=== PATIENT | female | born 1950 | race Caucasian/White ===

== ENCOUNTER 2016-11-10 19:40 | Emergency (ER) | payer MEDICARE, BC ==
[2016-11-10 21:57] LABS: ABSOLUTE BASOPHILS # (AUTO) 0.2 10^3/uL (0.0-0.2); ABSOLUTE LYMPHOCYTES (AUTO) 2.3 10^3/uL (0.5-4.7); ABSOLUTE MONOCYTES (AUTO) 0.7 10^3/uL (0.1-1.4); ABSOLUTE NEUT (AUTO) 11.6 10^3/uL (1.7-8.2); BASOPHILS % (AUTO) 1.2 % (0-2); EOSINOPHILS % (AUTO) 0.2 % (0-6); HEMATOCRIT 47.9 % (36.0-47.0); HEMOGLOBIN 15.4 g/dL (12.0-15.5); HGB HCT DIFFERENCE -1.7; LYMPHOCYTES % (AUTO) 15.3 % (13-45); MEAN CORPUSCULAR HEMOGLOBIN 29.6 pg (27.0-33.4); MEAN CORPUSCULAR HGB CONC 32.1 g/dL (32.0-36.0); MEAN CORPUSCULAR VOLUME 92 fl (80-97); MONOCYTES % (AUTO) 4.9 % (3-13); RED CELL DISTRIBUTION WIDTH 13.5 % (11.5-14.0); SEGMENTED NEUTROPHILS % (AUTO) 78.4 % (42-78); WHITE BLOOD COUNT 14.8 10^3/uL (4.0-10.5)
[2016-11-10 22:11] LABS: ALANINE AMINOTRANSFERASE 38 U/L (9-52); ALBUMIN 4.5 g/dL (3.5-5.0); ALKALINE PHOSPHATASE 81 U/L (38-126); ANION GAP 12 (5-19); ASPARTATE AMINO TRANSFERASE 23 U/L (14-36); BILIRUBIN,DIRECT 0.4 mg/dL (0.0-0.4); BLOOD UREA NITROGEN 33 mg/dL (7-20); CALCIUM 10.2 mg/dL (8.4-10.2); CARBON DIOXIDE 25 mmol/L (22-30); CHLORIDE 106 mmol/L (98-107); CREATININE RESULT 0.76 mg/dL (0.52-1.25); GLUCOSE 136 mg/dL (75-110); POTASSIUM 4.6 mmol/L (3.6-5.0); SODIUM 143.2 mmol/L (137-145); TOTAL PROTEIN 7.8 g/dL (6.3-8.2)
--- NOTE | 2016-11-10 22:55 | ER Document Report ---
ED General - General Chief Complaint: Abnormal Lab Results Stated Complaint: BLOOD WORK Time Seen by Provider: 11/10/16 21:53 Mode of Arrival: Ambulatory Information source: Patient Notes: This is a 66-year-old female who is visiting family from [place]. She presents for evaluation of blood work. She states that she saw her primary care doctor in [place] for 5 days ago because she was not feeling well. She was diagnosed with an ear infection on that day. She did have some blood work done on that day as well. Today she received a phone call about that blood work stating that her potassium was elevated at 8.9. She was told that the blood was not hemolyzed. It was recommended that she present to the nearest emergency department. Patient states that she feels well today. She states that her symptoms from her ear infection have resolved. She has had no chest pain or shortness of breath. She denies any pain. She has been eating normally. She has no complaints at this time. - Related Data Allergies/Adverse Reactions: Penicillins Allergy (Verified 11/10/16 20:09) Past Medical History - General Information source: Patient - Social History Smoking Status: Former Smoker Frequency of alcohol use: Rare Drug Abuse: None Lives with: Family Family History: Reviewed & Not Pertinent - Past Medical History Cardiac Medical History: Reports: Hx Hypercholesterolemia, Hx Hypertension Renal/ Medical History: Denies: Hx Peritoneal Dialysis Malignancy Medical History: Reports: Hx Breast Cancer Past Surgical History: Reports: Hx Hysterectomy, Hx Thyroid Surgery Review of Systems - Review of Systems Constitutional: No symptoms reported, See HPI EENT: No symptoms reported Cardiovascular: No symptoms reported. denies: Chest pain, Palpitations Respiratory: No symptoms reported Gastrointestinal: No symptoms reported. denies: Abdominal pain, Nausea, Vomiting Genitourinary: No symptoms reported Musculoskeletal: No symptoms reported Skin: No symptoms reported Hematologic/Lymphatic: No symptoms reported Neurological/Psychological: No symptoms reported Physical Exam - Notes Notes: PHYSICAL EXAMINATION: GENERAL: Well-appearing, well-nourished and in no acute distress. Very pleasant and conversant HEAD: Atraumatic, normocephalic. EYES: Pupils equal round and reactive to light, extraocular movements intact, sclera anicteric, conjunctiva are normal. ENT: nares patent, oropharynx clear without exudates. Moist mucous membranes. NECK: Normal range of motion, supple without lymphadenopathy LUNGS: Breath sounds clear to auscultation bilaterally and equal. No wheezes rales or rhonchi. HEART: Regular rate and rhythm without murmurs ABDOMEN: Soft, nontender, normoactive bowel sounds. No guarding, no rebound. No masses appreciated. EXTREMITIES: Normal range of motion, no pitting or edema. No cyanosis. NEUROLOGICAL: Cranial nerves grossly intact. No gross focal motor or sensory deficits appreciated. PSYCH: Normal mood, normal affect. SKIN: Warm, Dry, normal turgor, no rashes or lesions noted. Course - Re-evaluation Re-evalutation: 11/10/16 22:54 Discussed with patient and family that her potassium level is normal tonight. I strongly suspect that the value previously was a lab error. Patient has a benign exam, normal vital signs, and feels well. She will be discharged to follow-up with her primary care physician. We did discuss return precautions and she and her family are very comfortable with this plan. - Laboratory Result Diagrams: 11/10/16 21:09 11/10/16 21:09 Laboratory results interpreted by me: 11/10/16 11/10/16 21:09 21:09 WBC 14.8 H Hct 47.9 H Seg Neutrophils % 78.4 H Absolute Neutrophils 11.6 H BUN 33 H Glucose 136 H 11/10/16 22:53 Patient noted to have mild leukocytosis and mild hypoglycemia however she is currently on prednisone Discharge - Discharge Clinical Impression: Well adult exam Leukocytosis, unspecified Qualifiers: Leukocytosis type: unspecified Qualified Code(s): D72.829 - Elevated white blood cell count, unspecified Condition: Stable Disposition: HOME, SELF-CARE Additional Instructions: As discussed, your potassium level tonight is normal at 4.6. Your white blood cell count is mildly elevated which can be a result of the prednisone. Please follow-up with your primary care physician. Return to the ER for any worsening symptoms or concerns.
[2016-11-10 23:31] VITALS: BP 145/80
== END 2016-11-10 23:31 | disposition home or self-care (01) ==
LOC: ER 19:40
DX: D72.829 Elevated white blood cell count, unspecified (principal); E78.00 Pure hypercholesterolemia, unspecified; I10 Essential (primary) hypertension; Z85.3 Personal history of malignant neoplasm of breast; Z90.710 Acquired absence of both cervix and uterus; Z88.0 Allergy status to penicillin
CPT/HCPCS: 36415; 80053; 85025; 99283